=== PATIENT | female | born 1990 | race Caucasian/White ===

== ENCOUNTER → 2018-09-15 | Outpatient (REF) | payer SELFPAY | LOC: M LAB REF 17:00 | PROVIDERS: ATTEND Advanced Practice Midwife | DX: Z34.03 Encounter for supervision of normal first pregnancy, third trimester (principal); Z3A.00 Weeks of gestation of pregnancy not specified ==

== ENCOUNTER 2018-10-15 09:22 | Inpatient (IN) | payer SELFPAY ==
[~2018-10-15] VITALS: Ht 162.6 cm; Wt 104.9 kg
[2018-10-15] VITALS (21 sets, daily range): BP systolic 99–126; BP diastolic 57–80
[2018-10-15] MEDS ORDERED: PRENTAB9 PO (09:44)
[2018-10-15] MEDS ORDERED: LACTATED RINGER'S 1000 ML IV STA (10:16)
[2018-10-15] MEDS ORDERED: miSOPROStol 50 MCG 1/2 TAB (S0191) PO SCH (10:30)
--- NOTE | 2018-10-15 10:30 | HPEPDOC ---
Obstetrical History & Physical General Date of Admission Oct 15, 2018 at 10:07 History of Present Illness Chief Complaint: LOF, term Information Provided By: Patient Age: 28 : 1 Term: 0 Pre-term: 0 Abortions: 0 Livin Care Care: Limited Care (Nondenominational) Number of Visits: 2 Dating Final EDC: Oct 13, 2018 Final EDC by: LMP EGA at Admission: 40 (+2) Past Medical History Past Obstetrical History : Past Obstetrical History: Primgravida [employer] History: No pertinent history Past Medical History Medical History None Surgical History: Denies/None Family History Significant Family History: Cancer (bladder), Hypertension Social History Social history Pt and family are Nondenominational Marital Status: Family situation: Spouse/partner home Psychosocial History: No pertinent psych hx * Smoker: non-smoker Alcohol: Denies Drugs: denies Imunizations Tdap status: declined Influenza Status: declined Allergies Coded Allergies: No Known Allergies (Unverified , 10/15/18) Medications Scheduled Multivitamins/ ( 27-0.8 mg) 1 Tab Tab, 1 TAB PO DAILY Physical Examination Physical Examination GENERAL: Alert and oriented times three. BREAST: . ABDOMEN: Gravid and non-tender to touch. FETUS: Is vertex (VTX) by sterile vaginal examination (SVE), fetus is vertex (VTX) by Hao. Confirmed by bedside sono HEART RATE: Regular rate and rhythm. LUNGS: Clear to auscultation (CTA). EXTREMITIES: No edema. No clonus. Deep tendon reflexes (DTRs) + 2. Vital Signs/I&O Vital Signs Date Time Temp Pulse Resp B/P (MAP) Pulse Ox O2 Delivery O2 Flow Rate FiO2 10/15/18 09:49 98.4 89 18 124/77 (93) Pertinent Laboratoy Data Group B Streptococcus: Negative Steroid Therapy Steroid Therapy: No Vaginal Examination Dilation: Fingertip Effacement: 50% Station: Other (-4) Cervical Consistency: Medium Cervical Position: Posterior Presentation: Cephalic presentation Assessment Heart Rate (FHR): 145 Variability: Moderate Accelerations: Positive Decelerations: None Tocometer Contractions: Yes Frequency: irregular Strength: palpated as mild Assessment/Plan Assessment Xochitl is a 28-year-old (G)1 para (P)0-0-0-0 at 40+2 weeks by LMP. Pt is accompanied by her and mother. They are Nondenominational. Presents to Labor and Delivery (L&D) with reports of mild cramping and LOF 0700, clear. Denies bleeding. Fetus is active. Pt was seen twice in the office this . GBS was obtained at first visit 09/15/18. Plan Admit and orient. Account Adjuster and consent. Diet: regular. Group B Streptococcus (GBS) negative. Labs and intravenous (IV) per unit protocol. Counseled on misoprostol, Pitocin and induction of labor (IOL). Lactated Ringers (LR): Bolus 500 mL, then saline lock. labs to be drawn today Dr Suazo is aware of pt status Pt plans to labor ad sharon Anticipate normal spontaneous delivery (). C-S as appropriate. Camryn Sargent CNM Oct 15, 2018 10:30
[2018-10-15 11:17] LABS: HEMATOCRIT 38.3 % (36.0-47.0); HEMOGLOBIN 12.9 g/dl (12.0-15.5); MEAN CORPUSCULAR HEMOGLOBIN 29.1 pg (27.0-33.0); MEAN CORPUSCULAR HGB CONC 33.7 g/dl (32.0-36.5); MEAN CORPUSCULAR VOLUME 86.5 fl (80.0-96.0); PLATELET COUNT, AUTOMATED 147 10^3/uL (150-450); RED BLOOD COUNT 4.43 10^6/uL (4.00-5.40); WHITE BLOOD COUNT 8.6 10^3/uL (4.0-10.0)
[2018-10-15 12:43] LABS: HIV 1&2 SCREEN CENTAUR NEGATIVE (NEGATIVE)
--- NOTE | 2018-10-15 17:19 | IPNPDOC ---
Text Note Date of Service The patient was seen on 10/15/18. NOTE Reports UC are more uncomfortable Ambulating the osborne with partner UC 2-3 minutes apart x 45-60 seconds, mild FH 130, Cat I SVE 2/-3, more anterior, light bloody show Discontinue misoprostol, start pitocin Dr Suazo aware of pt status VS,Fishbone, I+O VS, Fishbone, I+O Laboratory Tests 10/15/18 10:16 Red Blood Count 4.43, Mean Corpuscular Volume 86.5, Mean Corpuscular Hemoglobin 29.1, Mean Corpuscular Hemoglobin Concent 33.7, Red Cell Distribution Width 13.8 Vital Signs Date Time Temp Pulse Resp B/P (MAP) Pulse Ox O2 Delivery O2 Flow Rate FiO2 10/15/18 16:16 97.9 80 18 122/74 (90) Camryn Sargent CNM Oct 15, 2018 17:19
[2018-10-15] MEDS ORDERED: OXYTOCIN DRIP 30 UNITS in APPROPRIATE DILUENT 1 EA IV SCH (17:30)
[2018-10-15] MEDS: LR 1,000 ML IV SCH (17:55)
--- NOTE | 2018-10-15 21:17 | IPNPDOC ---
Text Note Date of Service The patient was seen on 10/15/18. NOTE Coping well Pitocin @ 6mu FH 135, Cat I UC 3-4 minutes apart SVE 2-/-3, FSE placed VS,Fishbone, I+O VS, Fishbone, I+O Laboratory Tests 10/15/18 10:16 Red Blood Count 4.43, Mean Corpuscular Volume 86.5, Mean Corpuscular Hemoglobin 29.1, Mean Corpuscular Hemoglobin Concent 33.7, Red Cell Distribution Width 13.8 Vital Signs Date Time Temp Pulse Resp B/P (MAP) Pulse Ox O2 Delivery O2 Flow Rate FiO2 10/15/18 20:06 74 18 99/57 (71) 10/15/18 18:00 98.8 Camryn Sargent CNM Oct 15, 2018 21:17
[2018-10-16] VITALS (32 sets, daily range): BP systolic 91–203; BP diastolic 54–82
[2018-10-16] MEDS: LR 1,000 ML IV SCH (05:52)
--- NOTE | 2018-10-16 06:39 | IPNPDOC ---
Text Note Date of Service The patient was seen on 10/16/18. NOTE Feeling uncomfortable UC 3-4 minutes apart x 45-60 seconds FH 130, Cat I SVE /-1 Stadol/phenergan Anticipate NSVB VS,Fishbone, I+O VS, Fishbone, I+O Laboratory Tests 10/15/18 10:16 Red Blood Count 4.43, Mean Corpuscular Volume 86.5, Mean Corpuscular Hemoglobin 29.1, Mean Corpuscular Hemoglobin Concent 33.7, Red Cell Distribution Width 13.8 Vital Signs Date Time Temp Pulse Resp B/P (MAP) Pulse Ox O2 Delivery O2 Flow Rate FiO2 10/16/18 02:06 97.7 86 18 120/73 (89) I&O- Last 24 Hours up to 6 AM 10/16/18 06:00 Intake Total 2660 ml Output Total 1350 ml Balance 1310 ml Camryn Sargent CNM Oct 16, 2018 06:39
[2018-10-16] MEDS ORDERED: PROMETHAZINE INJ 25 MG/ML VIAL (J2550) IV ONE (06:45)
[2018-10-16] MEDS ORDERED: BUTORPHANOL 2 MG/ML INJ (J0595) IV ONE (06:45)
[2018-10-16] MEDS ORDERED: BUTORPHANOL 2 MG/ML INJ (J0595) As Ordered ONE (06:47)
[2018-10-16] MEDS ORDERED: PROMETHAZINE INJ 25 MG/ML VIAL (J2550) As Ordered ONE (06:48)
[2018-10-16] MEDS ORDERED: ONDANSETRON 4MG/2ML VIAL (J2405) IV PRN (12:00)
[2018-10-16] MEDS ORDERED: LIDOCAINE 1% MDV 20ML VIAL INFIL ONE (12:00)
[2018-10-16] MEDS ORDERED: DOCUSATE SODIUM 100 MG CAP PO PRN (12:00)
[2018-10-16] MEDS ORDERED: DIBUCAINE 1% OINTMENT 30GM TOP PRN (12:00)
[2018-10-16] MEDS ORDERED: IBUPROFEN 800 MG TAB PO PRN (12:00)
[2018-10-16] MEDS ORDERED: ACETAMINOPHEN 500 MG TAB PO PRN (12:00)
[2018-10-16] MEDS ORDERED: MEASLES,MUMPS,RUBELLA VACCINE INJ (MMR-II) (90707) SC SCH (12:00)
[2018-10-16] MEDS ORDERED: OXYTOCIN DRIP 30 UNITS in APPROPRIATE DILUENT 1 EA IV ONE (12:00)
[2018-10-16] MEDS ORDERED: RHOGAM 300 MCG (1500 IU) INJ (J2790) IM SCH (12:00)
[2018-10-16] MEDS ORDERED: METHYLERGONOVINE MALEATE 0.2 MG TAB PO PRN (12:00)
[2018-10-17 06:00] VITALS: BP 124/62
[2018-10-17] MEDS ORDERED: PRENATAL VITAMINS CHEWABLE TABLET PO SCH (09:00)
[2018-10-17] MEDS ORDERED: IBUP-1114 PO (09:56)
[2018-10-17] MEDS ORDERED: MAPA500T2 PO (09:56)
--- NOTE | 2018-10-17 22:40 | DN ---
DATE: 10/16/2018 PREDELIVERY DIAGNOSIS: 39 weeks spontaneous rupture of membranes early labor. POSTOPERATIVE DIAGNOSIS: Delivered. PROCEDURES: Spontaneous vaginal delivery. COOKIE PADDER: Ibrahima Suazo MD ANESTHESIA: None. ESTIMATED BLOOD LOSS: 300 mL. FINDINGS: 8 pound, 13 ounce female , 3990 grams, score 8 and 9. DELIVERY SUMMARY: After 90 minutes, second stage, the patient had spontaneous delivery of an 8 pound, 13 ounce female , score 8 and 9 with no delivery anesthesia. Shoulders delivered with ease. The was handed to the mother. The cord is doubly clamped and cut. The placenta was delivery spontaneously and appeared to be intact. The patient received IV pitocin immediately after delivery of the placenta. A second degree peroneal laceration was repaired with 2-0 Chromic under local anesthesia in the usual fashion. Sponge and needle counts were correct.
== END 2018-10-17 16:30 | disposition home or self-care (01) | DRG 560 ==
LOC: M LDO 09:22 → M LDI 10:07 → M OBS 10-16 13:55
PROVIDERS: ADMIT Advanced Practice Midwife; ATTEND Advanced Practice Midwife
PROC: 10E0XZZ Delivery of Products of Conception, External Approach (ICD-10-PCS; principal; 2018-10-16)
PROC: 0HQ9XZZ Repair Perineum Skin, External Approach (ICD-10-PCS; 2018-10-16)
DX: O70.1 Second degree perineal laceration during delivery (principal); Z37.0 Single live birth; Z3A.39 39 weeks gestation of pregnancy